=== PATIENT | female | born 2000 | race Caucasian/White ===

== ENCOUNTER 2022-01-09 19:18 | Emergency (ER) | payer OTHER ==
[2022-01-09 20:12] LABS: BILIRUBIN,URINE NEGATIVE (NEGATIVE); GLUCOSE, URINE (UA) NEGATIVE (NEGATIVE); KETONES,URINE (UA) TRACE mg/dL (NEGATIVE); LEUKOCYTE ESTERASE, URINE NEGATIVE (NEGATIVE); NITRITE,URINE NEGATIVE (NEGATIVE); OCCULT BLOOD,URINE TRACE-INTA (NEGATIVE); PROTEIN,URINE NEGATIVE (NEGATIVE); UROBILINOGEN,URINE 0.2 (NORMAL) E.U./dL (NORMAL)
[2022-01-09 20:12] LABS: BASOPHILS # (AUTO) 0.1 10^3/uL (0.0-0.1); BASOPHILS % (AUTO) 1.2 %; EOSINOPHILS # (AUTO) 0.2 10^3/uL (0.0-0.7); EOSINOPHILS % (AUTO) 3.1 %; HCT - HEMATOCRIT 39.1 % (37.0-47.0); HGB - HEMOGLOBIN 12.8 g/dL (12.0-16.0); LYMPHOCYTES # (AUTO) 1.8 10^3/uL (1.5-3.5); LYMPHOCYTES % (AUTO) 36.2 %; MEAN CORPUSCULAR HEMOGLOBIN 29.2 pg (27.0-31.0); MEAN CORPUSCULAR HGB CONC 32.7 g/dL (32.0-36.0); MEAN CORPUSCULAR VOLUME 89.1 fL (81.0-99.0); MEAN PLATELET VOLUME 9.7 fL (7.9-10.8); MONOCYTES # (AUTO) 0.6 10^3/uL (0.0-1.0); MONOCYTES % (AUTO) 11.4 %; NEUTROPHILS # (AUTO) 2.3 10^3/uL (1.5-6.6); NEUTROPHILS % (AUTO) 47.9 %; PLT - PLATELET COUNT 222 10^3/uL (130-450); RED BLOOD COUNT 4.39 10^6/uL (4.20-5.40); RED CELL DISTRIBUTION WIDTH 11.9 % (12.0-15.0); WHITE BLOOD COUNT 4.8 x10^3/uL (4.8-10.8)
[2022-01-09 20:14] LABS: CLARITY,URINE HAZY (CLEAR); HCG UR QUAL NEGATIVE
[2022-01-09 20:24] LABS: ALBUMIN 4.1 g/dL (3.2-5.5); ALBUMIN/GLOBULIN RATIO 1.5 (1.0-2.2); BILIRUBIN,TOTAL 0.7 mg/dL (0.2-1.0); CALCIUM 8.5 mg/dL (8.5-10.3); CREATININE 0.8 mg/dL (0.4-1.0); TOTAL PROTEIN 6.9 g/dL (6.7-8.2)
[2022-01-09 20:26] LABS: WBC,URINE 0-3 /HPF (0-5)
[2022-01-09 20:27] LABS: BACTERIA,URINE Rare /HPF (None Seen); MUCUS,URINE Moderate Strands; RBC,URINE 0-5 /HPF (0-5); SQUAMOUS EPITHELIAL CELL,UR FEW Squamous (<= Few)
[2022-01-10] MEDS ORDERED: HYDROmorphone 0.5 MG/0.5 ML SYRINGE IVP STA (00:28)
[2022-01-10] MEDS ORDERED: KETOROLAC 15 MG/ML VIAL IVP STA (00:28)
[2022-01-10] MEDS ORDERED: iohexoL-300 100 ML VIAL ONE (00:31)
--- NOTE | 2022-01-10 00:31 | ED Physician Documentation ---
PD HPI ABD PAIN - Stated complaint Stated Complaint: ABD PAIN - Chief complaint Chief Complaint: Abd Pain - History obtained from History obtained from: Patient - Additional information Additional information: The patient comes to the emergency department chief complaint of sudden onset of periumbilical abdominal pain around 1900 this evening. Patient states it has progressively worsened and now is in her bilateral lower quadrants. She denies any nausea or vomiting. No diarrhea. No change in her bowel movements. Her last menses was about 2 weeks ago. No fevers or chills. She have any chronic abdominal diagnoses. No dysuria or hematuria. No other complaints at this time. Review of Systems Ten Systems: 10 systems reviewed and negative Constitutional: reports: Reviewed and negative Eyes: reports: Reviewed and negative Ears: reports: Reviewed and negative Nose: reports: Reviewed and negative Throat: reports: Reviewed and negative Cardiac: reports: Reviewed and negative Respiratory: reports: Reviewed and negative GI: reports: Abdominal Pain : reports: Reviewed and negative Skin: reports: Reviewed and negative Musculoskeletal: reports: Reviewed and negative Neurologic: reports: Reviewed and negative Psychiatric: reports: Reviewed and negative Endocrine: reports: Reviewed and negative Immunocompromised: reports: Reviewed and negative PD PAST MEDICAL HISTORY - Past Medical History Past Medical History: No - Past Surgical History Past Surgical History: No - Present Medications Home Medications: Ambulatory Orders Medication Instructions Recorded Confirmed No Known Home Medications 01/09/22 01/09/22 - Allergies Allergies/Adverse Reactions: Allergies Allergy/AdvReac Type Severity Reaction Status Date / Time No Known Drug Allergies Allergy Verified 01/09/22 19:51 - Social History Does the pt smoke?: No Smoking Status: Never smoker Does the pt drink ETOH?: No Does the pt have substance abuse?: No - Immunizations Immunizations are current?: Yes PD ED PE NORMAL - Vitals Vital signs reviewed: Yes - General General: Alert and oriented X 3, No acute distress, Well developed/nourished - HEENT HEENT: Atraumatic, PERRL, EOMI, Moist mucous membranes - Neck Neck: Supple, no meningeal sign - Cardiac Cardiac: RRR, No murmur, Strong equal pulses - Respiratory Respiratory: No respiratory distress, Clear bilaterally - Abdomen Abdomen: Soft, Non distended, Other (Moderate bilateral lower quadrant tenderness, as well as suprapubic tenderness, no rebound or guarding.) - Derm Derm: Warm and dry - Extremities Extremities: No deformity - Neuro Neuro: Alert and oriented X 3 - Psych Psych: Normal mood, Normal affect Results - Vitals Vitals: Vital Signs - 24 hr 01/10/22 01/10/22 01/10/22 00:42 02:00 02:36 Temperature 36.9 C Heart Rate 91 73 71 Respiratory 18 16 16 Rate Blood Pressure 120/62 110/62 110/62 O2 Saturation 99 96 96 Oxygen O2 Source Room air - Labs Labs: Laboratory Tests 01/09/22 01/09/22 01/09/22 19:56 20:06 20:06 WBC 4.8 RBC 4.39 Hgb 12.8 Hct 39.1 MCV 89.1 MCH 29.2 MCHC 32.7 RDW 11.9 L Plt Count 222 MPV 9.7 Neut # (Auto) 2.3 Lymph # (Auto) 1.8 Leon # (Auto) 0.6 Eos # (Auto) 0.2 Baso # (Auto) 0.1 Absolute Nucleated RBC 0.00 Nucleated RBC % 0.0 Sodium 140 Potassium 4.0 Chloride 107 Carbon Dioxide 26 Anion Gap 7.0 BUN 12 Creatinine 0.8 Estimated GFR (MDRD) 90 Glucose 97 Calcium 8.5 Total Bilirubin 0.7 AST 21 ALT 18 Alkaline Phosphatase 48 Total Protein 6.9 Albumin 4.1 Globulin 2.8 Albumin/Globulin Ratio 1.5 Lipase 31 Urine Color YELLOW Urine Clarity HAZY Urine pH 6.0 Ur Specific [place] >=1.030 H Urine Protein NEGATIVE Urine Glucose (UA) NEGATIVE Urine Ketones TRACE Urine Occult Blood TRACE-INTA Urine Nitrite NEGATIVE Urine Bilirubin NEGATIVE Urine Urobilinogen 0.2 (NORMAL) Ur Leukocyte Esterase NEGATIVE Urine RBC 0-5 Urine WBC 0-3 Ur Squamous Epith Cells FEW Squamous Urine Bacteria Rare Urine Mucus Moderate Strands Ur Microscopic Review INDICATED Urine Culture Comments NOT INDICATED Urine HCG, Qual NEGATIVE - Rads (name of study) CT abd/pelvis Radiology: Final report received, EMP read indepedently, See rad report (neg) PD MEDICAL DECISION MAKING - ED course Complexity details: reviewed results, re-evaluated patient, considered differential, d/w patient ED course: Labs and UA were done and unremarkable. The patient is not . She was given IV Dilaudid and Toradol after which she felt better. She was sent for CT scan of the abdomen and pelvis, which was negative. Pt was feeling much better, and was stable for d/c. Departure - Departure Disposition: 01 Home, Self Care Clinical Impression: Abdominal pain Qualifiers: Abdominal location: lower abdomen, unspecified Qualified Code(s): R10.30 - Lower abdominal pain, unspecified Condition: Stable Instructions: ED Abdominal Pain Female Non-Specific Abdominal Pain Comments: Your labs and CT look good. There is no evidence of Crohn's or any other ab dominal abnormality. Most likely, you have one of the viruses that are going around and causing such symptoms, or you are reacting to food you ate that did not agree with you. At this point in time, you may use ibuprofen and Tylenol if needed for the discomfort. Drink plenty of fluids and see how you are feeling in the morning. Narcotic pain medications are not advised, because they will make you constipated and this will worsen your symptoms. Discharge Date/Time: 01/10/22 02:41
--- NOTE | 2022-01-10 01:53 | CT Report ---
PROCEDURE: ABDOMEN/PELVIS W INDICATIONS: worsening low abd pain CONTRAST: Omni 300 100ml TECHNIQUE: After the administration of intravenous contrast, 5 mm thick sections acquired from the diaphragms to the symphysis. 5 mm thick coronal and sagittal reformats were acquired. For radiation dose reducti on, the following was used: automated exposure control, adjustment of mA and/or kV according to fausto ent size. COMPARISON: None. FINDINGS: Image quality: Excellent. Lung bases: Unremarkable. Heart: Heart is normal in size. ABDOMEN: Liver:There is a small hypodense focus within the right hepatic lobe which is too small to character ize but likely represents a cyst. Gallbladder: Within normal limits without calcified gallstones. Biliary ducts: No biliary ductal dilatation. Pancreas: Unremarkable. Spleen: Normal in size. Adrenal Glands: No adrenal nodules. Kidneys and Ureters: No hydronephrosis. Stomach and Bowel: Stomach, small bowel loops, and colon are normal in caliber and wall thickness. N o evidence of appendicitis. Peritoneum:There is a small amount of free fluid in the pelvis which appears within physiologic limi ts. No free air. Ventral Wall: No hernia. Abdominal Nodes: No retroperitoneal or mesenteric adenopathy by size criteria. Vessels: Aorta and inferior vena cava are normal in size. PELVIS: Pelvic Organs: Unremarkable. Bladder: Unremarkable. Pelvic Nodes: No enlarged lymph nodes. Miscellaneous: No inguinal hernias are seen. Bones: Visualized osseous structures demonstrate no suspicious focal lesions. IMPRESSION: 1. No definite acute intra-abdominal abnormality. Reviewed by: Arjun Amaya MD on 01/10/2022 1:52 AM [facility] Approved by: Arjun Amaya MD on 01/10/2022 1:52 AM PST Station ID: [id number]
[2022-01-10] MEDS ORDERED: iohexoL-300 100 ML VIAL IVP ONE (02:07)
[2022-01-10 02:12] VITALS: BP 110/62
== END 2022-01-10 02:41 | disposition home or self-care (01) ==
LOC: ED 19:18
DX: R10.33 Periumbilical pain (principal)
CPT/HCPCS: 36415; 74177; 80053; 81001; 81025; 83690; 85025; 96374; 96375; 99282; 99284; J1170; Q9967; 81003; 87086

== ENCOUNTER 2022-08-28 10:15 | Outpatient (CLI) | payer OTHER ==
[2022-08-28 19:55] LABS: BACTERIAL VAGINOSIS DNA NEGATIVE (NEGATIVE); CANDIDA GLABRATA DNA NEGATIVE (NEGATIVE); CANDIDA GROUP DNA NEGATIVE (NEGATIVE); CANDIDA KRUSEI DNA NEGATIVE (NEGATIVE); TRICHOMONAS VAGINALIS DNA NEGATIVE (NEGATIVE)
[2022-08-28 21:20] LABS: CHLAMYDIA TRACHOMATIS DNA NEGATIVE (NEGATIVE); NEISSERIA GONORRHOEAE DNA NEGATIVE (NEGATIVE)
== END 2022-08-28 10:30 | disposition home or self-care (01) ==
LOC: LAB.N 10:15
PROVIDERS: ATTEND Family Medicine
DX: R30.0 Dysuria (principal); R10.9 Unspecified abdominal pain
CPT/HCPCS: 81514; 87086; 87491; 87591; 87661

== ENCOUNTER 2022-12-23 04:22 | Emergency (ER) | payer OTHER ==
[2022-12-23] MEDS ORDERED: IBUPROFEN 600 MG TABLET PO STA (04:40)
[2022-12-23] MEDS ORDERED: ACETAMINOPHEN 325 MG TABLET PO STA (04:40)
[2022-12-23] MEDS ORDERED: LIDOCAINE JELLY 2% 6 ML JEL.PF.APP TOP STA ×2 (04:40→06:20)
[2022-12-23 05:14] LABS: BASOPHILS % (AUTO) 0.8 %; EOSINOPHILS # (AUTO) 0.2 10^3/uL (0.0-0.7); HCT - HEMATOCRIT 39.4 % (37.0-47.0); HGB - HEMOGLOBIN 13.2 g/dL (12.0-16.0); MEAN CORPUSCULAR HEMOGLOBIN 29.4 pg (27.0-31.0); MEAN CORPUSCULAR HGB CONC 33.5 g/dL (32.0-36.0); MEAN CORPUSCULAR VOLUME 87.8 fL (81.0-99.0); MEAN PLATELET VOLUME 10.2 fL (7.9-10.8); MONOCYTES # (AUTO) 0.4 10^3/uL (0.0-1.0); MONOCYTES % (AUTO) 8.2 %; NEUTROPHILS # (AUTO) 2.5 10^3/uL (1.5-6.6); NEUTROPHILS % (AUTO) 48.8 %; PLT - PLATELET COUNT 252 10^3/uL (130-450); RED BLOOD COUNT 4.49 10^6/uL (4.20-5.40); RED CELL DISTRIBUTION WIDTH 11.9 % (12.0-15.0)
--- NOTE | 2022-12-23 05:40 | ED Physician Documentation ---
PD HPI SKIN - Stated complaint Stated Complaint: NUMBNESS, TINGLING IN HANDS - Chief complaint Chief Complaint: Ext Problem - History obtained from History obtained from: Patient, EMS - History of Present Illness Timing - onset: How many hours ago (just the past couple of hours.), Today Timing - duration: Hours (1-2) Timing - details: Abrupt onset, Still present Location: RUE (palmar aspect of fingers and palm both hands with pain and tingling, with marked sensitivity to touch. No redness noted. No tenderness/symptoms on dorsal apect of hands, nor of the forearms, feet, face nor neck.), LUE Quality / character: Painful (tingling/burning pain and markedly sensitive to touch.). No: Discolored, Vesicular, Swelling Associated symptoms: Joint pain (has had some pains in elbows and shoulders at times. No redness.). No: Fever, Myalgias Contributing factors: Other (was doing some cooking earlier in the day, cutting vegetables including onions, but has done before without problems. No use of new lens edger/chemicals, was not doing yardwork/planting/gardening.). No: Exposed to soap / lotion, Exposed to Poison lance/oak, Recent illness Similar symptoms before: Has not had sx before Review of Systems Constitutional: denies: Fever, Chills Skin: denies: Rash, Lesions, Abrasion (s) Musculoskeletal: denies: Neck pain Neurologic: denies: Focal weakness, Numbness PD PAST MEDICAL HISTORY - Past Medical History Past Medical History: No Respiratory: None Endocrine/Autoimmune: None - Past Surgical History Past Surgical History: No - Present Medications Home Medications: Ambulatory Orders Medication Instructions Recorded Confirmed Lidocaine Jelly 2% [Glydo] 6 ml TOP Q6H PRN #30 ml 12/23/22 Triamcinolone 0.5% Cream [Kenalog 1 applic TOP BID 3 Days #15 gm 12/23/22 0.5% Cream] - Allergies Allergies/Adverse Reactions: Allergies Allergy/AdvReac Type Severity Reaction Status Date / Time No Known Drug Allergies Allergy Verified 12/23/22 04:30 - Social History Does the pt smoke?: No Smoking Status: Never smoker Does the pt drink ETOH?: No Does the pt have substance abuse?: No - Immunizations Immunizations are current?: Yes - POLST Patient has POLST: No PD ED PE NORMAL - Vitals Vital signs reviewed: Yes - General General: Alert and oriented X 3, Well developed/nourished, Other (appears very uncomfortable. Holding hands and fingers outstretched so they don't contact each other nor anything else. ) - Neck Neck: Supple, no meningeal sign, No bony TTP, No adenopathy - Derm Derm: Normal color, Warm and dry, No rash - Extremities Extremities: Other (good color and cap refill of fingers, normal pulses at wrists. ) - Neuro Neuro: No motor deficit, No sensory deficit Results - Vitals Vitals: Vital Signs - 24 hr 12/23/22 12/23/22 12/23/22 04:22 05:35 05:49 Temperature 36.9 C 36.9 C Heart Rate 96 79 Respiratory 16 16 Rate Blood Pressure 127/96 H 137/73 H O2 Saturation 98 97 Oxygen O2 Source Room air - Labs Labs: Laboratory Tests 12/23/22 12/23/22 12/23/22 05:07 05:07 05:07 WBC 5.0 RBC 4.49 Hgb 13.2 Hct 39.4 MCV 87.8 MCH 29.4 MCHC 33.5 RDW 11.9 L Plt Count 252 MPV 10.2 Neut # (Auto) 2.5 Lymph # (Auto) 2.0 [place] # (Auto) 0.4 Eos # (Auto) 0.2 Baso # (Auto) 0.0 Absolute Nucleated RBC 0.00 Nucleated RBC % 0.0 ESR 3 Sodium 136 Potassium 3.7 Chloride 103 BUN 18 Creatinine 0.7 Estimated GFR (MDRD) 104 Glucose 88 Calcium 9.1 Total Bilirubin 0.4 AST 17 ALT 12 Alkaline Phosphatase 62 C-Reactive Protein < 0.5 Total Protein 6.4 Albumin 4.6 Globulin 1.8 L Albumin/Globulin Ratio 2.6 H Lipase 13 PD Medical Decision Making - ED course Complexity details: reviewed results (White count is normal. ESR and CRP are normal suggesting not an autoimmune type process such as lupus or rheumatoid. Electrolytes are good. Blood sugar is normal without any signs of new onset diabetes.), considered differential (very sensitive and painful plamar aspect both hands and fingers. Not dorsally. No redness/rash but acting like a dermatitis. Presume contact dermatitis by distribution. No other symptoms. Has had some joint pains in recent past. Can get some labs to eval for potential autoimmune. ), d/w patient ED course: She did have improvement with topical lidocaine. This is highly suggestive of a apparent dermatitis without redness. Can treat with lidocaine topically and have her not working today and I would try a topical steroid to the area. Departure - Departure Disposition: 01 Home, Self Care Clinical Impression: Hand pain, Cutaneous sensitivity, Hand dermatitis Condition: Stable Record reviewed to determine appropriate education?: Yes Instructions: ED Dermatitis Atopic Eczema Follow-Up: ELIZA LOPEZ MD [Primary Care Provider] - Prescriptions: Lidocaine Jelly 2% [Glydo] 6 ml TOP Q6H PRN #30 ml PRN Reason: Pain 1-4 Triamcinolone 0.5% Cream [Kenalog 0.5% Cream] 1 applic TOP BID 3 Days #15 gm Comments: There is no redness or rash but the pattern and character of your symptoms is suggestive of an irritation of the skin nerves (dermatitis). This can be a contact process as an something irritated your skin leading to sensitivity of the tissue and nerves. It can be inflammatory such as an eczema type thing. Sometimes related to dryness. I would suggest a steroid cream that would both decrease inflammation and provide some level of moisturizing. You could do hypoallergenic hand cream as well such as Eucerin or Lubriderm. Use the lidocaine jelly if needed for sensitivity. For pain Tylenol and/or ibuprofen can be used. Off work today to allow less contact and use of the hands while this is improving. Recheck if not improved completely over the next day or so or if recurring episodes to look for other reasons. I sent your prescriptions to the [facility] pharmacy. I would suggest doing the steroid cream twice daily for the next 2 or 3 days. Forms: PCP List, Activity restrictions
[2022-12-23 05:59] VITALS: BP 137/73; O2SAT 97
[2022-12-23 06:08] LABS: ALBUMIN 4.6 g/dL (3.2-5.5); CRP - C-REACTIVE PROTEIN < 0.5 mg/dL (<0.5); LIPASE 13 U/L (11-82)
[2022-12-23 06:10] LABS: ALBUMIN/GLOBULIN RATIO 2.6 (1.0-2.2); ALKALINE PHOSPHATASE 62 IU/L (42-121); ALT ALANINE AMINOTRANSFERASE 12 IU/L (10-60); AST ASPARTATE AMINOTRANSFERASE 17 IU/L (10-42); BILIRUBIN,TOTAL 0.4 mg/dL (0.2-1.0); BUN - BLOOD UREA NITROGEN 18 mg/dL (6-20); CALCIUM 9.1 mg/dL (8.5-10.3); CHLORIDE 103 mmol/L (101-111); CREATININE 0.7 mg/dL (0.6-1.3); GFR - MDRD 104 (>89); GLUCOSE 88 mg/dL (74-104); POTASSIUM 3.7 mmol/L (3.5-4.5); SODIUM 136 mmol/L (135-145); TOTAL PROTEIN 6.4 g/dL (6.4-8.9)
[2022-12-23] MEDS ORDERED: dexAMETHasone 4 MG TABLET PO STA (06:20)
[2022-12-23 07:14] LABS: CARBON DIOXIDE - CO2 24 mmol/L (21-32)
== END 2022-12-23 06:37 | disposition home or self-care (01) ==
LOC: EDUNIT# → ED 04:22
DX: L30.9 Dermatitis, unspecified (principal); M79.641 Pain in right hand
CPT/HCPCS: 36415; 80053; 83690; 85025; 85651; 86140; 99283; A9270; J8540

== ENCOUNTER 2023-04-01 02:21 | Emergency (ER) | payer OTHER ==
[2023-04-01 02:32] VITALS: BP 125/62; O2SAT 100
[2023-04-01 02:46] LABS: BILIRUBIN,URINE NEGATIVE (NEGATIVE); GLUCOSE, URINE (UA) NEGATIVE (NEGATIVE); KETONES,URINE (UA) 40 mg/dL (NEGATIVE); LEUKOCYTE ESTERASE, URINE SMALL (NEGATIVE); NITRITE,URINE NEGATIVE (NEGATIVE); OCCULT BLOOD,URINE LARGE (NEGATIVE); PROTEIN,URINE 100 mg/dL (NEGATIVE); UROBILINOGEN,URINE 0.2 (NORMAL) E.U./dL (NORMAL)
[2023-04-01 02:47] LABS: CLARITY,URINE HAZY (CLEAR)
[2023-04-01 02:48] LABS: HCG UR QUAL NEGATIVE
[2023-04-01 02:58] LABS: BACTERIA,URINE Few /HPF (None Seen); RBC,URINE TNTC /HPF (0-5); SQUAMOUS EPITHELIAL CELL,UR FEW Squamous (<= Few)
[2023-04-01] MEDS: KETOROLAC 60 MG/2 ML VIAL IM STA (03:16)
[2023-04-01] MEDS: PHENAZOPYRIDINE 100 MG TABLET PO STA (03:16)
--- NOTE | 2023-04-01 03:43 | ED Physician Documentation ---
PD HPI FEMALE - Stated complaint Stated Complaint: FEMALE - Chief complaint Chief Complaint: UTI - History obtained from History obtained from: Patient - Additional information Additional information: 22-year-old female with no reported past medical history presents by private vehicle from home for 1 day of suprapubic discomfort and urinary frequency as well as pain with urination. Patient states she noticed symptoms beginning earlier today but gradually worsened and tonight she was unable to sleep due to her pain and urinary frequency. No medications taken prior to arrival. States she has had bacterial vaginosis in the past, but this feels somewhat different. Had sexual intercourse with her fianc last night and states that there was a brief moment where it became painful, and she is wondering if this may be related to her symptoms today.Otherwise denies fevers, chills, nausea, vomiting, back pain, other complaints. Review of Systems Constitutional: denies: Fever, Chills Cardiac: denies: Chest pain / pressure, Palpitations, Calf pain Respiratory: denies: Dyspnea, Cough, Wheezing GI: denies: Abdominal Pain, Nausea, Vomiting Musculoskeletal: denies: Neck pain, Back pain, Extremity pain PD PAST MEDICAL HISTORY - Past Medical History Past Medical History: Yes Respiratory: None Endocrine/Autoimmune: None Psych: Anxiety - Past Surgical History Past Surgical History: No - Present Medications Home Medications: Ambulatory Orders Medication Instructions Recorded Confirmed Lidocaine Jelly 2% [Glydo] 6 ml TOP Q6H PRN #30 ml 12/23/22 Triamcinolone 0.5% Cream [Kenalog 1 applic TOP BID 3 Days #15 gm 12/23/22 0.5% Cream] cephALEXin [Keflex] 500 mg PO BID #10 cap 04/01/23 - Allergies Allergies/Adverse Reactions: Allergies Allergy/AdvReac Type Severity Reaction Status Date / Time No Known Drug Allergies Allergy Verified 04/01/23 02:31 - Social History Does the pt smoke?: No Smoking Status: Never smoker Does the pt drink ETOH?: No Does the pt have substance abuse?: No - Immunizations Immunizations are current?: Yes - POLST Patient has POLST: No PD ED PE NORMAL - Vitals Vital signs reviewed: Yes - General General: Alert and oriented X 3, Well developed/nourished, Other (in pain) - Cardiac Cardiac: RRR, Strong equal pulses - Respiratory Respiratory: No respiratory distress, Clear bilaterally - Abdomen Abdomen: Soft, Other (suprapubic tenderness to palpation) - 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), Other (normal cervix, normal vagina, no blood, no lesions, no abnormal discharge) - Derm Derm: Normal color, Warm and dry, No rash - Neuro Neuro: Alert and oriented X 3, tailer in 2-12 intact, No motor deficit, Normal speech Results - Vitals Vitals: Vital Signs - 24 hr 04/01/23 02:27 Temperature 37 C Heart Rate 105 H Respiratory 17 Rate Blood Pressure 125/62 O2 Saturation 100 Oxygen O2 Source Room air - Labs Labs: Laboratory Tests 04/01/23 04/01/23 02:33 03:25 Urine Color YELLOW Urine Clarity HAZY Urine pH 6.0 Ur Specific [place] >=1.030 H Urine Protein 100 H Urine Glucose (UA) NEGATIVE Urine Ketones 40 H Urine Occult Blood LARGE H Urine Nitrite NEGATIVE Urine Bilirubin NEGATIVE Urine Urobilinogen 0.2 (NORMAL) Ur Leukocyte Esterase SMALL H Urine RBC TNTC H Urine WBC 6-10 H Ur Squamous Epith Cells FEW Squamous Urine Bacteria Few Ur Microscopic Review INDICATED Urine Culture Comments INDICATED Urine HCG, Qual NEGATIVE C. glabrata (PCR) NEGATIVE C. krusei (PCR) NEGATIVE Allyssa species DNA NEGATIVE T. vaginalis (PCR) NEGATIVE Bact Vaginosis (PCR) NEGATIVE PD Medical Decision Making - ED course Complexity details: reviewed results, re-evaluated patient, considered differential, d/w patient ED course: Uncomfortable but nontoxic-appearing patient with 1 day of symptoms. Physical exam remarkable for suprapubic tenderness to palpation, no flank pain. exam normal. Patient does have large amount of blood in her urine, however she states that she ended her menstrual cycle 3 days prior. No blood in vaginal vault. Pain improved with Pyridium and Toradol. Pending vaginosis swab. Will give initial dose of Keflex in the emergency department. Bacterial vaginosis panel negative. Patient discharged with Keflex rx, instructed to use pyridium for comfort and to take tylenol and motrin for pain. Departure - Departure Disposition: 01 Home, Self Care Clinical Impression: Cystitis Condition: Stable Instructions: ED UTI Cystitis Female Prescriptions: cephALEXin [Keflex] 500 mg PO BID #10 cap Discharge Date/Time: 04/01/23 04:21
[2023-04-01] MEDS: cephALEXin 250 MG CAPSULE PO STA (04:18)
[2023-04-01] MEDS: CEPHALEXIN 250 MG Prepack 8 CAP BOTTLE PO STA (04:18)
[2023-04-01 05:12] LABS: BACTERIAL VAGINOSIS DNA NEGATIVE (NEGATIVE); CANDIDA GLABRATA DNA NEGATIVE (NEGATIVE); CANDIDA GROUP DNA NEGATIVE (NEGATIVE); CANDIDA KRUSEI DNA NEGATIVE (NEGATIVE); TRICHOMONAS VAGINALIS DNA NEGATIVE (NEGATIVE)
== END 2023-04-01 04:21 | disposition home or self-care (01) ==
LOC: ED 02:21
DX: N30.91 Cystitis, unspecified with hematuria (principal)
CPT/HCPCS: 81001; 81025; 81514; 87086; 87181; 96372; 99283; A9270; 80053; 81003; 83690; 85025

== ENCOUNTER 2023-08-02 20:57 | Emergency (ER) | payer OTHER ==
[2023-08-02 21:25] VITALS: BP 145/73; O2SAT 98
--- NOTE | 2023-08-02 21:25 | ED Physician Documentation ---
PD HPI BACK PAIN - Stated complaint Stated Complaint: BACK PX - Chief complaint Chief Complaint: Back Pain - History obtained from History obtained from: Patient - History of Present Illness Timing - details: Gradual onset Pain level max: 8 Pain level now: 8 Location: Upper Quality: Pain, Spasm Associated symptoms: No: Fever, Weakness, Numbness, Incontinent of urine, Unable to urinate, Hematuria, Incontinent of stool Improves with: Rest Worsened by: Movement Contributing factors: Out of meds (Ran out of her Flexeril). No: Twisting, Anticoagulated, Cancer, IVDA - Additional information Additional information: Patient is a 23-year-old female who presents to the emergency department complaining of back pain. She states is mostly in the upper back. She states it feels like a spasm that "will not let go". She states that she has had back spasms before and this feels similar. She states that Flexeril helped in the past, 10 mg. She took Motrin yesterday without relief. Does not use any IV drugs. No fevers. No recent trauma. No loss of bowel or bladder control. No numbness or tingling. Denies any possibility of . No urinary symptom s. Review of Systems Constitutional: denies: Fever : denies: Now [facility] PD PAST MEDICAL HISTORY - Past Medical History Past Medical History: Yes Respiratory: None Endocrine/Autoimmune: None Psych: Anxiety - Past Surgical History Past Surgical History: No - Present Medications Home Medications: Ambulatory Orders Medication Instructions Recorded Confirmed Cyclobenzaprine [Flexeril] 10 mg PO TID PRN #20 tablet 08/02/23 Ibuprofen [Motrin] 800 mg PO Q8H PRN #30 tablet 08/02/23 - Allergies Allergies/Adverse Reactions: Allergies Allergy/AdvReac Type Severity Reaction Status Date / Time No Known Drug Allergies Allergy Verified 08/02/23 21:11 - Social History Does the pt smoke?: No Smoking Status: Never smoker Does the pt drink ETOH?: No Does the pt have substance abuse?: No - Immunizations Immunizations are current?: Yes - POLST Patient has POLST: No PD ED PE NORMAL - Vitals Vital signs reviewed: Yes - General General: Alert and oriented X 3, No acute distress - HEENT HEENT: Moist mucous membranes - Neck Neck: Supple, no meningeal sign, No bony TTP - Cardiac Cardiac: RRR, Strong equal pulses - Respiratory Respiratory: No respiratory distress, Clear bilaterally - Abdomen Abdomen: Soft, Non tender, Non distended - Back Back: No spinal TTP, Other (No midline tenderness to palpation or percussion. No step-off or deformity. There is paraspinal spasm left thoracolumbar. Reproduces her pain.) - Derm Derm: Warm and dry - Extremities Extremities: No edema, No calf tenderness / cord - Neuro Neuro: Alert and oriented X 3, No motor deficit, No sensory deficit, Other (Normal bilateral lower extremity patellar and ankle jerk reflexes. Normal great toe extension bilaterally. no saddle anesthesia) - Psych Psych: Normal mood, Normal affect Results - Vitals Vitals: Vital Signs - 24 hr 08/02/23 21:08 Temperature 36.6 C Heart Rate 82 Respiratory 18 Rate Blood Pressure 145/73 H O2 Saturation 98 Oxygen O2 Source Room air PD Medical Decision Making - ED course Complexity details: reviewed results, re-evaluated patient, considered differential (No cauda equina, no spinal epidural abscess, no fracture, no aortic dissection or evidence of aneursym rupture), d/w patient ED course: Patient with back spasm. Resolved with Toradol and Flexeril. No evidence of cauda equina, epidural abscess. Ambulating without difficulty. We will place on Flexeril for home as this has helped her in the past. Recommend that she follow-up with her PCP for further care. Patient counseled regarding signs and symptoms for which I believe and urgent re-evaluation would be necessary. Patient with good understanding of and agreement to plan and is comfortable going home at this time This document was made in part using voice recognition software. While efforts are made to proofread this document, sound alike and grammatical errors may occur. Departure - Departure Disposition: Home, Self Care Clinical Impression: Back spasm Condition: Good Instructions: ED Spasm Back No Trauma Follow-Up: HANNAH MATTHEW MD [Primary Care Provider] - Within 1 week Prescriptions: Cyclobenzaprine [Flexeril] 10 mg PO TID PRN #20 tablet PRN Reason: Spasms Ibuprofen [Motrin] 800 mg PO Q8H PRN #30 tablet PRN Reason: PAIN &/OR FEVER Comments: Follow up with your doctor for further care. Your prescription was sent to [facility] in [place]. Continue gentle stretching at home. Forms: Activity restrictions Discharge Date/Time: 08/02/23 21:47
[2023-08-02] MEDS: CYCLOBENZAPRINE 10 MG TABLET PO STA (21:32)
[2023-08-02] MEDS: KETOROLAC 60 MG/2 ML VIAL IM STA (21:33)
== END 2023-08-02 21:47 | disposition home or self-care (01) ==
LOC: ED 20:57
DX: M62.830 Muscle spasm of back (principal)
CPT/HCPCS: 96372; 99283; A9270